=== PATIENT | female | born 1995 | race Hispanic/Latino ===

== ENCOUNTER 2021-10-21 05:13 | Emergency (ER) | payer OTHER, SELFPAY ==
[2021-10-21 05:15] VITALS: BP 128/70; PULSE 97; RESP 19; TEMP 36.2; O2SAT 98
--- NOTE | 2021-10-21 05:23 | DI.US.S_ITS ---
PROCEDURE: US OB <= 14 WEEKS FETUS INDICATIONS: PAIN OUTSIDE/PRIOR DATING DATA: Last menstrual period (LMP): 08/25/2021. LMP-based estimated date of delivery (DIANE): 08/12/2021. First dating scan (date and location): 10/21/2021 at . Estimated date of delivery (DIANE) from first dating scan: 06/11/2022. TECHNIQUE: Real-time scanning was performed of the fetus and maternal pelvic organs, with image documentation. Endovaginal scanning was also performed to better visualize the fetus and maternal ovaries. COMPARISON: None. FINDINGS: There is a single living IUP with the estimated gestational age 6 weeks 5 days. cardiac activity is present with heart rate 137 BPM. There is a normal appearing yolk sac. Maternal organs: Ovaries are grossly normal. Note is made of a corpus luteal cyst in the left ovary. IMPRESSION: 1. A single living intrauterine gestation with an estimated gestational age of 6 weeks 5 days corresponding to ultrasound DIANE 06/11/2022. Ultrasound dating concordant with clinical dating. 2. A corpus luteal cyst in left ovary. No significant discrepancy with the wood tank erector radiology preliminary report. We strive to produce accurate, complete, and clear reports of imaging services. To assist us in improving patient care, this report was composed using standard report templates and voice recognition software. Therefore, it may contain abnormal punctuation, insertions and/or omissions. Occasional wrong-word or sound-alike substitutions may occur. Though we review the report and make efforts to correct it, we do recommend that the report be read carefully in proper context to recognize any text inaccuracies. Dictated by: Shavonne Musa M.D. on 10/21/2021 at 8:51 Approved by: Shavonne Musa M.D. on 10/21/2021 at 8:54
--- NOTE | 2021-10-21 05:38 | ED_ITS ---
HPI - Female Genitourinary General Chief complaint: OB/Uterine Contractions Stated complaint: Transfered from [facility] Time Seen by Provider: 10/21/21 05:17 Source: patient Mode of arrival: Ambulatory History of Present Illness HPI Narrative: 26-year-old female nonsmoker otherwise healthy is a at 7 weeks and presents in transfer from outside facility for evaluation of possible ectopic . Patient states that she has had a relatively gradual worsening of abdominal discomfort for the past 2 days. She states it started with some pins and needles and tingling sensation in her mid back which initially seemed to get w orse with motion and improves with rest. Soon thereafter she developed episodic, colicky generalized abdominal pain and had some loose stools. She states that the pain significantly worsened with bowel movements. She denies any fever or chills, recent antibiotics, travel, bad food, or exposure to other persons with similar symptoms. She admits to dysuria and urgency and states this feels similar to prior UTIs. She has no vaginal bleeding, discharge or leakage of fluid. In the past 24 hours or so she has developed more significant pain in her right lower quadrant which seems to only be worse with palpation. She was seen and evaluated at outside facility and confirms urine and, beta quantitative hCG of over 67,000. Blood type is O-positive. She was sent here for further workup, most importantly for ultrasound to rule out the potential of ectopic as sending facility does not have access to ultrasound until day shift. Related Data Previous Rx's Medication Instructions Recorded cephalexin 500 mg capsule 500 mg PO BID #14 cap 10/21/21 Review of Systems Review of Systems Narrative: GENERAL: Denies chills, fatigue, malaise, fever, sweats. HEENT: Denies sinus pain, ear pain, sore throat, difficulty swallowing, dizziness. RESPIRATORY: Denies dyspnea, cough, wheezing, hemoptysis, sputum. CARDIOVASCULAR: Denies chest pain, palpitations, orthopnea, edema, GASTROINTESTINAL: See HPI : See HPI MUSCULOSKELETAL: denies weakness, joint pain, or bony pain SKIN: Denies rash, skin lesions, or other NEUROLOGIC: Denies weakness, headache, numbness, change in speech, confusion, seizures, incoordination. PSYCHIATRIC: No concerning psychosocial issues. 12 point review of systems is negative except for those stated above Patient History alcohol intake frequency: holidays/special occasions only Substance Use Type: does not use Exam Narrative Exam Narrative: GENERAL: [26] year old patient appears stated age. Well-developed patient, in mild distress. HEAD: Atraumatic. Normocephalic. EYES: Pupils equal round and reactive. Extraocular motions intact. No scleral icterus. No injection or drainage. ENT: Nose without bleeding, purulent drainage. Throat without erythema, tonsillar hypertrophy or exudate. Airway patent. NECK: Trachea midline. Non tender CARDIOVASCULAR: Regular rate and rhythm without murmurs, gallops, or rubs. RESPIRATORY: Clear to auscultation. Breath sounds equal bilaterally. No wheezes, rales, or rhonchi. GASTROINTESTINAL: Abdomen soft, generalized tenderness with increased bowel sounds throughout, most tender in the right lower quadrant, nondistended. EXTREMITIES: No edema or joint tenderness. BACK: Nontender without deformity or crepitance. No flank tenderness. NEURO: AOx3. SKIN: No rash or erythema of visible areas Initial Vital Signs Initial Vital Signs: Vital Signs Temperature 97.2 F L 10/21/21 05:15 Pulse Rate 97 H 10/21/21 05:15 Respiratory Rate 19 10/21/21 05:15 Blood Pressure 128/70 10/21/21 05:15 Pulse Oximetry 98 10/21/21 05:15 Course Orders Ordered: ED Orders 10/21/21 05:23 US OB <= 14 weeks fetus Stat 10/21/21 05:37 GI Panel (Film Array) Stat 10/21/21 06:40 Urine Culture Stat Urine Microscopic Stat Vital Signs Vital signs: Vital Signs - 8 hr 10/21/21 05:15 Temperature 97.2 F L Pulse Rate 97 H Respiratory Rate 19 Blood Pressure 128/70 Pulse Oximetry 98 MDM - Female Genitourinary Lab Data Labs: Lab Results 10/21/21 Range/Units 06:40 Urine RBC 0-1/hpf (0-5/HPF) Urine WBC None seen (0-5/HPF) Ur Squamous Epith Cells 1-5 /hpf (0-5/HPF) Urine Bacteria Many (>30) H (None) Ur Culture Indicated? Specimen cultured Urine Dip Bedside Urine Glucose Negative Bedside Urine Bilirubin - Negative Bedside Urine Ketone +/- 5 Urine Specific [place] 1.015 Bedside Urine Occult Blood ++ Bedside Urine pH 6.0 Bedside Urine Protein - Negative Bedside Urine Urobilinogen - Negative Bedside Urine Nitrite + Positive Bedside Urine Leukocytes - Negative Esterase Imaging Data US - OB: Radiologist's Impression: Live IUP with HR 137. No ectopic. MDM Narrative Medical decision making narrative: at 7 weeks presents with generalized abdominal cramping and discomfort with some low back pain. Multiple diagnoses considered including ectopic which is thought unlikely given ultrasound findings. She is unable to produce a stool sample here in our department in is low risk for an infectious diarrhea given lack of travel, antibiotics, bad food or exposure to other ill persons. She does have urinary frequency, urgency and dysuria and urine POC notes hematuria and nitrites. She has had urine infections in the past and states this feels similar. Given the risk of not treating UTI in we will start her on Keflex (rx to [facility] at her request) Patient given extensive return precautions and questions answered to her apparent satisfaction. Discharge Plan Departure Patient Disposition: Home Clinical Impression: Abdominal pain, UTI (urinary tract infection) Instructions: DI for Urinary Tract Infection (UTI) Activity Restrictions/Additional Instructions: *You have been diagnosed with [diarrhea and UTI. As we discussed your labs and ultrasound are otherwise very reassuring and there is no evidence of ectopic ] *What to do: *Please continue to take your regular medications as directed. [ x] New medication prescriptions sent to your pharmacy: [ [facility] in [place]] [ ] New medication written as a paper prescription [ ] No new medications given *Please follow up with your primary care provider in 2-3 days, call for an appointment. Let them know you were seen in the Emergency Department and that we ask that you be seen in follow up. We will electronically transmit a record of today's note if your PCP is in our system *If you do not have a primary care provider please contact the [facility] Resource line at [phone]. They will ask some questions about your medical history and help get you set up with a doctor in the community. *Return to Emergency Department if you should have any new, worsening or concerning symptoms, such as [fever greater than 101 F, shaking chills, worsening pain, persistent vomiting or other bothersome symptoms] Prescriptions: New cephalexin 500 mg capsule 500 mg PO BID Qty: 14 0RF
[2021-10-21 06:49] LABS: Bacteria Urine Many (>30); RBC Urine 0-1/HPF (0-5/HPF); Squamous Epithelial Cell Urine 1-5 /HPF (0-5/HPF); WBC Urine None Seen (0-5/HPF)
[2021-10-21 06:50] LABS: Culture Indicated Urine Specimen Cultured
== END 2021-10-21 07:09 | disposition home or self-care (01) ==
PROVIDERS: Emergency Provider Emergency Medicine
DX: O23.41 Unspecified infection of urinary tract in pregnancy, first trimester (principal); O26.891 Other specified pregnancy related conditions, first trimester; R10.84 Generalized abdominal pain; Z3A.01 Less than 8 weeks gestation of pregnancy
CPT/HCPCS: 76801; 76817; 81003; 81015; 87077; 87086; 87186; 99281; 99283

== ENCOUNTER → 2021-11-23 16:47 | Outpatient (CLI) | payer OTHER, SELFPAY ==
[2021-11-23 21:12] LABS: Urine N gonorrhoeae NOT DETECTED
[2021-11-23 21:37] LABS: Urine Chlamydia NOT DETECTED
== END ==
PROVIDERS: Visit Provider Specialist
DX: Z34.81 Encounter for supervision of other normal pregnancy, first trimester (principal); Z3A.11 11 weeks gestation of pregnancy
CPT/HCPCS: 87491; 87591

== ENCOUNTER → 2021-11-23 17:04 | Outpatient (CLI) | payer OTHER, SELFPAY ==
[2021-11-23 18:05] LABS: Add Manual Diff / Slide Review NO; Basophils Absolute Auto 0 /uL (0-100); Basophils Percent Auto 0.4 % (0-2); Eosinophils Absolute Auto 600 /uL (0-450); Eosinophils Percent Auto 5.9 % (2-4); Hematocrit 37.3 % (36-46); Hemoglobin 12.9 g/dL (12.0-16.0); Lymphocytes Absolute Auto 1900 /uL (1100-4500); Lymphocytes Percent Auto 18.9 % (25-40); Mean Corpuscular HGB Conc 34.6 % (30-36); Mean Corpuscular Hemoglobin 28.5 PG (26-34); Mean Corpuscular Volume 82.5 fL (80-100); Monocytes Absolute Auto 400 /uL (0-900); Neutrophils Absolute Auto 7000 /uL (1500-7000); Neutrophils Percent Auto 70.8 % (50-75); Platelet Count 228 X10^3/uL (150-400); Red Blood Cell Count 4.52 X10^6/uL (4.0-5.2); White Blood Cell Count 9.8 X10^3/uL (4.5-11.0)
[2021-11-24 07:39] LABS: Varicella IgG Antibody 264 index (Immune >165)
[2021-11-24 08:24] LABS: RPR Screen Non Reactive (Non Reactive)
[2021-11-24 16:18] LABS: Hepatitis B Surface Antigen NEGATIVE s/c (NEGATIVE); Rubella Antibody IgG 3.4 IU/mL (>15)
[2021-11-24 16:38] LABS: HIV 1 & 2 Ab/Ag 4th Gen Combo NEGATIVE (NEGATIVE); Hep C Virus Ab w/Reflex Quant NEGATIVE s/c (NEGATIVE)
== END ==
PROVIDERS: Referring Provider Specialist; Visit Provider Specialist
DX: Z34.81 Encounter for supervision of other normal pregnancy, first trimester (principal); Z3A.11 11 weeks gestation of pregnancy
CPT/HCPCS: 36415; 80055; 86787; 86803; 86850; 86900; 86901; 87389; 87491; 87591

== ENCOUNTER → 2021-12-21 19:08 | Outpatient (ROUT) | payer OTHER, SELFPAY ==
[2021-12-21 19:38] LABS: Appearance Urine UA CLEAR; Bilirubin Urine UA NEGATIVE (NEGATIVE); Color Urine UA YELLOW; Glucose Urine UA NEGATIVE (Negative); Ketones Urine UA NEGATIVE (NEGATIVE); Leukocyte Esterase Urine UA TRACE (NEGATIVE); Nitrite Urine UA POSITIVE (Negative); Occult Blood Urine UA 2+ (Negative); Protein Urine UA NEGATIVE (Negative); Urobilinogen Urine UA 0.2 E.U./dL (0.2)
[2021-12-21 19:42] LABS: pH Urine UA 5.5 (4.5-8.0)
[2021-12-21 19:47] LABS: Bacteria Urine None Seen; Culture Indicated Urine Cult Not Indicated; RBC Urine 5-10/HPF (0-5/HPF); WBC Urine 1-5/HPF (0-5/HPF)
== END ==
PROVIDERS: Specialist; Visit Provider Obstetrics & Gynecology
DX: Z34.81 Encounter for supervision of other normal pregnancy, first trimester (principal)
CPT/HCPCS: 81003; 81015; 87077; 87086; 87147

== ENCOUNTER → 2022-01-18 14:40 | Outpatient (CLI) | payer OTHER, SELFPAY ==
[2022-01-18 15:09] LABS: Alanine Aminotransferase 12 IU/L (<35); Albumin 3.9 g/dL (3.5-5.0); Albumin Globulin Ratio 1.3 (1.0-2.8); Alkaline Phosphatase 56 U/L (38-126); Aspartate Aminotransferase 17 IU/L (14-36); BUN Creatinine Ratio 17.3 (6-22); Bilirubin Total 0.1 mg/dL (0.2-1.3); Blood Urea Nitrogen 9 mg/dL (7-17); Calcium 9.1 mg/dL (8.4-10.2); Carbon Dioxide 24 mmol/L (22-32); Chloride 104 mmol/L (98-107); Estimated Glomerular Filt Rate > 60 mL/min (>60); Glucose 92 mg/dL (70-100); HEMOLYSIS < 15 (0-50); Potassium 3.8 mmol/L (3.4-5.1); Sodium 136 mmol/L (137-145); Total Protein 6.9 g/dL (6.3-8.2)
[2022-01-20 20:28] LABS: AFP, Serum 33.2 ng/mL (.); Estriol, Free 2.02 ng/mL (.); Inhibin A, MoM 0.59 (.); Maternal Ethnicity Other (.); Maternal Weight 217 lbs (.); Number of Fetuses No (.); OSBR Risk 1 IN 10000 (.); Results Report (.); Test Results *Screen Negative* (.); hCG, MoM 0.55 (.); hCG, Serum 11381 mIU/mL (.)
== END ==
PROVIDERS: Referring Provider Obstetrics & Gynecology; Visit Provider Obstetrics & Gynecology
DX: Z34.82 Encounter for supervision of other normal pregnancy, second trimester (principal); R10.11 Right upper quadrant pain; Z3A.19 19 weeks gestation of pregnancy
CPT/HCPCS: 36415; 80053; 82105; 82677; 84702; 86336

== ENCOUNTER → 2022-01-25 13:57 | Outpatient (CLI) | payer OTHER, SELFPAY ==
--- NOTE | 2022-01-25 13:58 | DI.US.S_ITS ---
PROCEDURE: US OB >= 14 WEEKS FETUS INDICATIONS: 20 wk anatomy OUTSIDE/PRIOR DATING DATA: Last menstrual period (LMP): 08/25/2021. LMP-based estimated date of delivery (DIANE): 06/11/2022. First dating scan (date and location): 10/21/2021 at . Estimated date of delivery (DIANE) from first dating scan: 06/11/2022. TECHNIQUE: Real-time scanning was performed of the fetus, with image documentation and biometric measurements. Endovaginal scanning: Not performed. COMPARISON: [facility], OB <= 14 WEEKS FETUS, 11/23/2021, 16:54. [facility], OB <= 14 WEEKS FETUS, 10/21/2021, 6:08. FINDINGS: General: A single living intrauterine gestation is present. Presentation: Breech. Placenta: Placental position is posterior right , without previa. Amniotic fluid index: 11 cm, normal range is 5-24 cm. Single deepest vertical pocket is 3.9 cm. heart rate: 143 beats per minute. Maternal cervical canal: 5.4 cm long. Normal lower limit is 2.5 cm. biometrics: Biparietal diameter: 21 weeks 1 day Head circumference: 21 weeks 0 day Abdominal circumference: 21 weeks 1 day Femur length: 21 weeks 0 day Clinically estimated gestational age: 20 weeks 3 days Composite gestational age from present scan: 21 weeks 1 day Estimated weight and percentile: 397 g; 80%. Anatomic survey: Neuro: Ventricles are non-dilated at less than 10 mm. Cisterna magna is normal at 3-11 mm. Cerebellum is normal in size and morphology. Nuchal skin fold: Normal at less than 6 mm between 14-21 weeks gestational age. Face: Nose and lips, facial profile are normal. Spine: Lumbar spine and sacrum not well seen due to position. Heart: 4-chambered heart is present, with normal ventricular outflow tracts. Diaphragm: Diaphragm is intact. Stomach: Left-sided stomach is present. Kidneys: No hydronephrosis. Normal is less than 5 mm in 2nd trimester, less than 7 mm in 3rd trimester. Cord: 3-vessel cord has orthotopic insertion. Bladder: Normal in size. Extremities: All 4 extremities identified. feet not well seen. IMPRESSION: 1. A single living intrauterine gestation with appropriate interval growth. 2. weight at 80% focus station age. 3. spine and feet not well seen. Otherwise normal anatomic survey. We strive to produce accurate, complete, and clear reports of imaging services. To assist us in improving patient care, this report was composed using standard report templates and voice recognition software. Therefore, it may contain abnormal punctuation, insertions and/or omissions. Occasional wrong-word or sound-alike substitutions may occur. Though we review the report and make efforts to correct it, we do recommend that the report be read carefully in proper context to recognize any text inaccuracies. Dictated by: Shavonne Musa M.D. on 01/25/2022 at 17:51 Approved by: Shavonne Musa M.D. on 01/25/2022 at 18:00
== END ==
PROVIDERS: PCP Obstetrics & Gynecology; Referring Provider Obstetrics & Gynecology; Visit Provider Obstetrics & Gynecology
DX: Z34.82 Encounter for supervision of other normal pregnancy, second trimester (principal); Z3A.21 21 weeks gestation of pregnancy
CPT/HCPCS: 76811

== ENCOUNTER 2022-02-13 09:35 | Observation (INO) | payer OTHER, SELFPAY ==
[2022-02-13 10:13] LABS: Appearance Urine UA CLEAR; Bilirubin Urine UA NEGATIVE (NEGATIVE); Color Urine UA YELLOW; Glucose Urine UA NEGATIVE (Negative); Ketones Urine UA NEGATIVE (NEGATIVE); Leukocyte Esterase Urine UA 3+ (NEGATIVE); Nitrite Urine UA NEGATIVE (Negative); Occult Blood Urine UA 2+ (Negative); Protein Urine UA NEGATIVE (Negative); Urobilinogen Urine UA 0.2 E.U./dL (0.2)
[2022-02-13 10:23] LABS: RBC Urine 1-5/HPF (0-5/HPF); WBC Urine 5-10/HPF (0-5/HPF); pH Urine UA 6.5 (4.5-8.0)
[2022-02-13 10:24] LABS: Bacteria Urine Few (2-10); Culture Indicated Urine Specimen Cultured; Squamous Epithelial Cell Urine 0-1 /HPF (0-5/HPF)
--- NOTE | 2022-02-13 12:30 | P.TNLD_ITS ---
Visit Information Visit Information Date of evaluation: 02/13/22 Primary OB Provider: Yisel Michelle Reason for Evaluation: Yes other Comments/Additional reasons for admission: cramping in , urinary frequency, vaginal itching 26-year-old presents due to intermittent lower abdominal cramping and urinary frequency. She also had some discomfort in her lower abdomen, suprapubically with voiding which has now resolved. Urinary symptoms feel similar to when she was in the ED at 7 weeks and diagnosed with the UTI. Also notes lower abdominal discomfort with standing, feels better supporting her abdomen, and some back discomfort with sitting only, both sound musculoskeletal by description. Reports intermittent vaginal itching when she sees at discharge. Reports increased white discharge. Denies leakage of fluid to me, but on presentation reported to RN what sounded like possible leakage of fluid. No vaginal bleeding. Feeling movement. [facility] Medical History (Updated 11/17/21 @ 14:11 by Ramandeep Reid RN) delivery delivered Family History (Updated 11/17/21 @ 14:11 by Ramandeep Reid RN) Family/Other Diabetes mellitus Social History marital status: number of children: 2 household members: spouse and children lives independently: Yes housing: house pets and animals: Yes (1 dog) education level: high school occupational status: unemployed current occupational exposures/hazards: No special danyelle needs: No travel history: over 6 months ago seatbelt use: always water heater temp set < 120 deg: Yes working smoke detector in home: Yes fire extinguisher in home: Yes carbon monox detector in home: Yes firearms in home: Yes firearms unloaded and locked: Yes do you feel safe at home: Yes Smoking Status: Never smoker second hand exposure: No (not regularly (brother smokes, doesn't live with pt)) alcohol intake: former substance use type: does not use during the past year weight has: other (Fluctuates) well-balanced diet: daily or most days daily servings fruits/ve-4 caffeine: Yes (Aware of 200mg limit) Type(s) of exercise: walking Objective Labs Labs: Laboratory Results - last 24 hr 02/13/22 09:50 Urine Color Yellow Urine Appearance Clear Urine pH 6.5 Ur Specific [place] 1.010 Urine Protein Negative Urine Glucose (UA) Negative Urine Ketones Negative Urine Occult Blood 2+ H Urine Nitrate Negative Urine Bilirubin Negative Urine Urobilinogen 0.2 Ur Leukocyte Esterase 3+ H Urine RBC 1-5/hpf Urine WBC 5-10/hpf H Ur Squamous Epith Cells 0-1 /hpf Urine Bacteria Few (2-10) H Ur Culture Indicated? Specimen cultured Evaluation Evaluation Variability: Average (6-10) monitor accelerations: Present Monitor Decelerations: Absent Status: Category l Cervical dilation (cm): 0 Cervical effacement (%): 0 Comments: Normal EFM baseline, no decelerations. Small accelerations consistent with gestational age. [place]: No contractions Abdominal exam: no tenderness Back: No CVA tenderness bilaterally. Area discomfort is very low, medial and inferior to sacroiliac joints Speculum exam: Increased yellow green discharge. Sample for wet prep: Viewed under microscope by me, shows hyphae. No Trichomonas, rare clue cell. 3+ WBC, occasional sperm seen. Urinalysis: 3+ leukocyte, 2+ blood. On micro 5-10 wbc, few bacteria Diagnosis, Plan/Disposition Plan/Disposition Plan: 1.Yeast vaginitis: Vaginal clotrimazole send. Discussed if ends up being too expensive by prescription, then by an [id number] 3 or 7 day antifungal vaginal cream. 2. Will treat presumptively for UTI pending the culture since symptoms feel similar to past UTI and seeing some bacteria on the urine dip. Rx Cefpoxidime 100 BID x7d UCx sent 3. Musculoskeletal discomfort. Discussed to consider an abdominal binder to help with the lower abdominal discomfort with standing. OB Disposition: home
== END 2022-02-13 12:18 | disposition home or self-care (01) ==
PROVIDERS: Admitting Provider Obstetrics & Gynecology; PCP Obstetrics & Gynecology; Referring Provider Obstetrics & Gynecology; Visit Provider Obstetrics & Gynecology
DX: O23.592 Infection of other part of genital tract in pregnancy, second trimester (principal); B96.89 Other specified bacterial agents as the cause of diseases classified elsewhere; O26.892 Other specified pregnancy related conditions, second trimester; R10.30 Lower abdominal pain, unspecified; Z3A.23 23 weeks gestation of pregnancy
CPT/HCPCS: 59025; 59050; 81001; 84112; 87077; 87086; 87147; G0378; G0379

== ENCOUNTER → 2022-03-10 15:41 | Outpatient (CLI) | payer OTHER, SELFPAY ==
[2022-03-10 18:13] LABS: Hematocrit 32.7 % (36-46); Hemoglobin 11.1 g/dL (12.0-16.0)
[2022-03-10 18:22] LABS: GTT (PREG) 1 Hour PP 50gm Dose 213 mg/dL (76-139)
== END ==
PROVIDERS: PCP Obstetrics & Gynecology; Referring Provider Obstetrics & Gynecology; Visit Provider Obstetrics & Gynecology
DX: Z34.82 Encounter for supervision of other normal pregnancy, second trimester (principal); Z3A.26 26 weeks gestation of pregnancy
CPT/HCPCS: 36415; 82950; 85014; 85018

== ENCOUNTER → 2022-03-28 09:38 | Outpatient (CLI) | payer OTHER, SELFPAY ==
--- NOTE | 2022-03-28 09:39 | DI.US.S_ITS ---
PROCEDURE: US OB FOLLOW UP INDICATIONS: Complete anatomy survey, retry visualization spine/ft OUTSIDE/PRIOR DATING DATA: Last menstrual period (LMP): 08/25/2021 LMP-based estimated date of delivery (DIANE): 06/01/2022 First dating scan (date and location): 10/21/2021 Estimated date of delivery (DIANE) from first dating scan: 06/11/2022 The calculations are made using the ultrasound DIANE of 06/11/2022 TECHNIQUE: Real-time scanning was performed of the fetus, with image documentation and biometric measurements. Endovaginal scanning: Not performed COMPARISON: [facility], , OB >= 14 WEEKS FETUS, 01/25/2022, 14:38. FINDINGS: General: A single living intrauterine gestation is present. Presentation: Breech Placenta: Placental position is posterior, without previa. Amniotic fluid index: 16.8 cm, normal range is 5-24 cm. Single deepest vertical pocket is 5.1 cm. heart rate: 149 beats per minute. Maternal cervical canal: 4.7 cm long. Normal lower limit is 2.5 cm. biometrics: Biparietal diameter: 7.9 cm, 31 weeks 6 days Head circumference: 28.6 cm, 31 weeks 3 days Abdominal circumference: 26.4 cm, 30 weeks 4 days Femur length: 5.5 cm, 29 weeks 0 days Clinically estimated gestational age: 29 weeks 2 days Composite gestational age from present scan: 30 weeks 5 days Estimated weight and percentile: 1537 g, 72nd percentile Other: feet and spine are visualized and are within normal limits. IMPRESSION: 1. Single live intrauterine with appropriate growth. 2. spine and feet are visualized and are within normal limits. We strive to produce accurate, complete, and clear reports of imaging services. To assist us in improving patient care, this report was composed using standard report templates and voice recognition software. Therefore, it may contain abnormal punctuation, insertions and/or omissions. Occasional wrong-word or sound-alike substitutions may occur. Though we review the report and make efforts to correct it, we do recommend that the report be read carefully in proper context to recognize any text inaccuracies. Dictated by: Sudhir Sims M.D. on 03/28/2022 at 16:25 Approved by: Sudhir Sims M.D. on 03/28/2022 at 16:28
== END ==
PROVIDERS: Referring Provider Obstetrics & Gynecology; Visit Provider Obstetrics & Gynecology
DX: Z36.2 Encounter for other antenatal screening follow-up (principal); Z3A.30 30 weeks gestation of pregnancy
CPT/HCPCS: 76816

== ENCOUNTER → 2022-03-29 09:39 | Outpatient (CLI) | payer OTHER, SELFPAY ==
--- NOTE | 2022-03-29 17:05 | DIAB.GDA ---
Initial Gestational Diabetes Assessment Name: Marbella Thompson Date: 03/29/22 Time: [id number] Dx: [facility] Gestational Diabetes & Abnormal glucose complicating Provider: Viviana DIANE: 06/11/22 Weeks: 29 [place] presents for initial visit. Endorses GDM dx at the end of her last in 2019. No GDM with 2018 , however both children born >9#. +FH of DM with paternal grandmother and aunt. States she will be repeating the glucola screen since it was 213 mg/dL after drinking soda prior. States she has a very busy schedule currently with packing for her move in June. will be stationed in [place]. Reports difficulty with with both daughters. Reports pain. Would like to try again with this baby (she is having a son). Mother plans to come help her and support plan. Has not utilized a inside sales consultant. Endorses a variable schedule. Not sleeping well and not eating at regular times. Sometimes will go >4 hours without eating and then eat larger portions per report. Receives WIC. Has questions regarding food safety in . Diet Recall: Breakfast: eggs, glass, veggies, coffee with sweet creamer ; only coffee and creamer ; fruit x 1.5c with coffee Lunch: nothing or sandwich with ww bread with 1/2-1c chips Dinner: 3c soup with meat and potatoes and veg ; 1-1.5c potatoes with green beans and steak snack: Cookie 18g CHO Beverages: water x 128oz+, soda 12oz, OJ somtimes 8oz for breakfast Anthropometrics: Ht: 5'5 Wt: 241# today at OB Prepregnancy wt: 202# Physical Activity: No program. Mostly ADLs with packing and house chores Self-Monitoring Blood Glucose: Recent ran out of lancets. Plans to call pharmacy. Checking FBG and some 1 or 2 hour pc readings. Currently checking 1-3x per day due to skipped meals. States she will be more likely to check BG if at 1hour pc. States 2 hour she will forget. All FBG and postprandial readings in goal with one elevated FBG after <8 hour fasting. Diabetes Medications: None Pertinent Labs: screen 1 hr: 213 mg/dL Nutrition Rx: Carbohydrates: Daily: 180-195g Meal: 45-60g lunch and dinner; 30g breakfast Snack: 15-30g Nutrition Diagnosis: Nutrition and food related knowledge deficit r/t no previous MNT for hyperglycemia aeb pt report Excessive CHO intake r/t beverage choices aeb diet recall Self monitoring deficit r/t skipped meals, forgetting, and running out of lancets aeb pt SMBG report Intervention: This participant was very receptive. Provided appropriate educational handouts. Discussed the following topics: GDM pathophysiology and impact of hyperglycemia on mom and baby Risk for T2DM for mom and baby in the future Ways to reduce risk T2DM Plate Method, meal timing, carb counting, pairing macronutrients and spreading out CHO for better BG management Blood glucose goals (FBG: <95 and 1 hour <140 mg/dL or 2 hour <120 mg/dL); importance of checking 4x per day (FBG and pc) Impact of macronutrients on blood glucose Recommended servings for carbohydrates at meals and snacks Brainstormed appropriate meal plan based on her food preferences Food safety: heat up lunch meat, read food labels for cheese that is pasteurized. Role of physical activity and following provider guidelines for safety Goals: Check for pasteurized cheese warm turkey until steaming Eat prot with carbs for meals/snacks Try to eat q 3-4 hours Avoid sugary beverages Follow-up: ROSITA MOORE follow-up in two weeks via phone and three weeks in person Diane Sullivan RDN, OSCAR Certified Diabetes Care and Laboratory Appar[employer] T: [phone] F: [phone] [email or web address] Thank you for this referral
== END ==
PROVIDERS: PCP Obstetrics & Gynecology; Referring Provider Obstetrics & Gynecology; Visit Provider Obstetrics & Gynecology
DX: O24.419 Gestational diabetes mellitus in pregnancy, unspecified control (principal); Z3A.29 29 weeks gestation of pregnancy; Z71.3 Dietary counseling and surveillance
CPT/HCPCS: 36415; 82950; 97802

== ENCOUNTER → 2022-03-29 11:20 | Outpatient (CLI) | payer OTHER, SELFPAY ==
[2022-03-29 13:54] LABS: GTT (PREG) 1 Hour PP 50gm Dose 139 mg/dL (76-139)
== END ==
PROVIDERS: PCP Obstetrics & Gynecology; Referring Provider Obstetrics & Gynecology; Visit Provider Obstetrics & Gynecology
DX: Z34.82 Encounter for supervision of other normal pregnancy, second trimester (principal); Z3A.29 29 weeks gestation of pregnancy
CPT/HCPCS: 36415; 82950

== ENCOUNTER → 2022-04-25 16:55 | Outpatient (CLI) | payer OTHER, SELFPAY ==
--- NOTE | 2022-04-25 17:01 | DI.US.S_ITS ---
PROCEDURE: US OB LIMITED INDICATIONS: Growth US OUTSIDE/PRIOR DATING DATA: Last menstrual period (LMP): 08/25/2021. LMP-based estimated date of delivery (DIANE): 06/01/2022. First dating scan (date and location): 10/21/2021. Estimated date of delivery (DIANE) from first dating scan: 06/11/2022. TECHNIQUE: Real-time scanning was performed of the fetus, with image documentation and biometric measurements. Endovaginal scanning: Not performed COMPARISON: [facility], , OB FOLLOW UP, 03/28/2022, 9:50. FINDINGS: General: A single living intrauterine gestation is present. Presentation: Transverse. Placenta: Placental position is fundal/posterior , without previa. Amniotic fluid index: 20.0 cm, normal range is 5-24 cm. Single deepest vertical pocket is 7.0 cm. heart rate: 131 beats per minute. Maternal cervical canal: 6.0 cm long. Normal lower limit is 2.5 cm. biometrics: Biparietal diameter: 9.0 cm, 36 weeks 4 days Head circumference: 32.8 cm, 37 weeks 2 days Abdominal circumference: 33.4 cm, 37 weeks 2 days Femur length: 6.6 cm, 33 weeks 6 days estimated gestational age: 33 weeks 2 days Composite gestational age from present scan: 36 weeks 2 days Estimated weight and percentile: 2916 g, 99th percentile Other: Not applicable. IMPRESSION: 1. Single living intrauterine . 2. size is greater than expected for gestational age. The fetus is at risk for macrosomia. We strive to produce accurate, complete, and clear reports of imaging services. To assist us in improving patient care, this report was composed using standard report templates and voice recognition software. Therefore, it may contain abnormal punctuation, insertions and/or omissions. Occasional wrong-word or sound-alike substitutions may occur. Though we review the report and make efforts to correct it, we do recommend that the report be read carefully in proper context to recognize any text inaccuracies. Dictated by: Sudhir Cheng M.D. on 04/26/2022 at 8:45 Approved by: Sudhir Cheng M.D. on 04/26/2022 at 8:59
== END ==
PROVIDERS: PCP Obstetrics & Gynecology; Referring Provider Obstetrics & Gynecology; Visit Provider Obstetrics & Gynecology
DX: O24.419 Gestational diabetes mellitus in pregnancy, unspecified control (principal); Z3A.36 36 weeks gestation of pregnancy
CPT/HCPCS: 76815

== ENCOUNTER 2022-05-06 23:11 | Observation (INO) | payer OTHER, SELFPAY ==
[2022-05-07] MEDS: NIFEdipine 10 MG CAPSULE PO ×3 (01:18→02:03)
[2022-05-07] MEDS: LACTATED RINGERS 1,000 ML 1000 ML IV (01:24)
[2022-05-07 01:25] LABS: Strep Grp B PCR POS for Grp B Strep
== END 2022-05-07 02:16 | disposition home or self-care (01) ==
LOC: LABOR 23:15
PROVIDERS: Admitting Provider Obstetrics & Gynecology; Referring Provider Obstetrics & Gynecology; Visit Provider Obstetrics & Gynecology
DX: O60.03 Preterm labor without delivery, third trimester (principal); Z3A.34 34 weeks gestation of pregnancy
CPT/HCPCS: 59050; 87653; 96360; G0378; G0379

== ENCOUNTER 2022-05-24 11:22 | Outpatient (CLI) | payer OTHER, SELFPAY | END 2022-05-24 13:30 | disposition home or self-care (01) | LOC: LABOR 12:08 → OB 05-29 08:45 | PROVIDERS: Referring Provider Obstetrics & Gynecology; Visit Provider Obstetrics & Gynecology | DX: O47.1 False labor at or after 37 completed weeks of gestation (principal); Z3A.37 37 weeks gestation of pregnancy | CPT/HCPCS: 59025; 59050; G0378; G0379 ==

== ENCOUNTER 2022-06-05 05:40 | Inpatient (IN) | payer OTHER, SELFPAY ==
[2022-06-05] VITALS (7 sets, daily range): BP systolic 94–139; BP diastolic 56–79; PULSE 67–88; RESP 14–20; TEMP 36–36.7; O2SAT 100
--- NOTE | 2022-06-05 | PATH_ITS ---
[facility] Accession Number: [id number] . 01 Material submitted: . fallopian tube - RIGHT AND LEFT FALLOPIAN TUBES . 01 Diagnosis: Right and Left Fallopian Tubes, Bilateral Salpingectomy: Two fimbriated fallopian tubes with benign paratubal cyst. MRV 06/07/2022 1728 Local . 01 Electronically signed: . Jeni Shaw MD, Pathologist NPI- [id number] . 01 Gross description: . The specimen is received in formalin labeled with the patient's name, , and right and left fallopian tubes, and consists of two unoriented fimbriated fallopian tubes measuring 8.6 x 0.9 cm and 5.7 x 1.2 cm, respectively. The longer fallopian tube has congested smooth serosa with a cystic structure measuring 0.7 cm in greatest dimension filled with clear serous fluid. Sectioning reveals a congested stellate lumen. The shorter fallopian tube has congested smooth serosa with no cystic structures identified, and sectioning reveals a congested stellate lumen. Sections to include a authorization representative longitudinal section of fimbriae and authorization representative cross-sections are submitted as follows: . A1: Longer fallopian tube. A2: [place] fallopian tube. ([id number]) /MRV 06/07/2022 0246 Local . 01 Pathologist provided ICD-10: Z98.891, Z3A.39 . 01 CPT . 687172 Specimen Comment: A courtesy copy of this report has been sent to [facility] Performed at: 01 [facility] [address] [place] [address] [address], [place], [place] [id number] MD Harley Barahona MD Phone: [phone]
[2022-06-05] MEDS: LACTATED RINGERS 1,000 ML 100 ML IV (06:00)
[2022-06-05 06:53] LABS: Add Manual Diff / Slide Review NO; Basophils Absolute Auto 0 /uL (0-100); Basophils Percent Auto 0.3 % (0-2); Eosinophils Absolute Auto 300 /uL (0-450); Eosinophils Percent Auto 3.4 % (2-4); Hematocrit 34.1 % (36-46); Hemoglobin 11.1 g/dL (12.0-16.0); Lymphocytes Absolute Auto 1800 /uL (1100-4500); Lymphocytes Percent Auto 19.7 % (25-40); Mean Corpuscular HGB Conc 32.5 % (30-36); Mean Corpuscular Hemoglobin 24.8 PG (26-34); Mean Corpuscular Volume 76.3 fL (80-100); Monocytes Absolute Auto 400 /uL (0-900); Monocytes Percent Auto 4.8 % (3-14); Neutrophils Absolute Auto 6700 /uL (1500-7000); Neutrophils Percent Auto 71.8 % (50-75); Platelet Count 208 X10^3/uL (150-400); Red Blood Cell Count 4.47 X10^6/uL (4.0-5.2); Red Cell Distribution Width 16.6 % (11.6-14.8); White Blood Cell Count 9.3 X10^3/uL (4.5-11.0)
--- NOTE | 2022-06-05 07:28 | P.HPOB_ITS ---
OB HPI Date/Time Date of admission: 06/05/22 Date Patient Seen: 06/05/22 Time Patient Seen: 07:25 History of Present Condition Chief complaint: C SECTION DIANE Calculator Estimated Delivery Date Method Current WG Current Estimate 06/11/22 Ultrasound #1 39w 1d Other Estimates 06/01/22 LMP (Certain) 40w 4d Estimated Gestational Age (weeks): 39 : 3 Para: 2 Narrative: here for scheduled repeat section and bilateral salpingectomy for sterilization. She has a history of section x2 with 9-10 lb babies. She also desired sterilization with the procedure and I review of options of tubal ligation versus bilateral salpingectomy, she desired salpingectomy. She understands permanence of the procedure. She had a false initial 1 hour Glucola, drank a soda just prior to the test and value was elevated enough that we went straight to locking blood sugars.. She did a glucose log for over 1 week with all normal values. Repeat 1 hour Glucola was normal. care: good care Dating criteria OB: based on 1st trimester US only Obstetrical complications: none Medical complications OB: none Preadmission Labs Last OB Lab Results: Blood Type O Positive 11/23/21 17:30 Antibody Screen Negative 11/23/21 17:30 Hematocrit 34.1 % (36-46) L 06/05/22 06:00 Hemoglobin 11.1 g/dL (12.0-16.0) L 06/05/22 06:00 Hepatitis B Surface Antigen Negative s/c (NEGATIVE) 11/23/21 17 :30 Hepatitis C Antibody Negative s/c (NEGATIVE) 11/23/21 17:30 Rubella Antibody 3.4 IU/mL (>15) L 11/23/21 17:30 Varicella-Zoster IgG Antibody 264 index (Immune >165) 11/23/21 17:30 Glucose 1 Hour 139 mg/dL (76-139) 03/29/22 13:06 Group B Streptococcus (PCR) Pos for grp b strep H 05/07/22 00:2 6 -: Chlamydia screen: negative and Gonorrhea screen: negative Genetic Screens: Quad screen: Normal and Cell-free DNA: Normal Prior (ies) Past Pregnancies Del. Date GA/Weeks Labor Lgth Wt Sex Route Outcome Anesthesia Place Delv Breastfeed Preg Comp Name 07/07/17 39 10 lb 15 oz Female live - full term [place], [place] 1 week none Dana Berumen 12/15/19 39 9 lb 5 oz Female [facility] n/a no henrietta Renetta Delivery Date: 07/07/17 Last Updated by: Ramandeep Reid R.N. breech, born w/ cardiac murmur that resolved spontaneously Evaluation Evaluation Baseline heart rate: 135 Variability: Average (6-10) monitor accelerations: Present Monitor Decelerations: Absent Category of Tracing: Reactive Status: Category l Comments: has some irregular, infrequent contractions [facility] Medical History (Updated 05/20/22 @ 12:24 by Yisel Michelle MD) delivery delivered macrosomia Family History (Updated 11/17/21 @ 14:11 by Ramandeep Reid RN) Family/Other Diabetes mellitus Social History marital status: number of children: 2 household members: spouse and children lives independently: Yes housing: house pets and animals: Yes (1 dog) education level: high school occupational status: unemployed current occupational exposures/hazards: No special danyelle needs: No travel history: over 6 months ago seatbelt use: always water heater temp set < 120 deg: Yes working smoke detector in home: Yes fire extinguisher in home: Yes carbon monox detector in home: Yes firearms in home: Yes firearms unloaded and locked: Yes do you feel safe at home: Yes Smoking Status: Never smoker second hand exposure: No (not regularly (brother smokes, doesn't live with pt)) alcohol intake: former substance use type: does not use during the past year weight has: other (Fluctuates) well-balanced diet: daily or most days daily servings fruits/ve-4 caffeine: Yes (Aware of 200mg limit) Type(s) of exercise: walking Meds Home Medications and Allergies Home Medications Medication Instructions Recorded Confirmed Type calcium carbonate 200 mg calcium 200 mg PO BID PRN Acid Reflux 11/17/21 06/05/22 History (500 mg) chewable tablet (Tums) prenat.vits,brenda,brf-diux-pfxry 1 tab PO DAILY 11/17/21 06/05/22 History betamethasone dipropionate 0.05 % 1 applic topical DAILY PRN rash 12/21/21 06/05/22 Rx topical ointment #45 grams ondansetron HCl 4 mg tablet 4 mg PO Q8H PRN nausea and 12/21/21 06/05/22 Rx vomiting #20 tabs cefpodoxime 100 mg tablet 100 mg PO Q12H #14 tabs 02/13/22 06/05/22 Rx clotrimazole 1 % vaginal cream 1 appful vaginal BEDTIME #45 grams 02/13/22 06/05/22 Rx (Clotrimazole-7) ferrous sulfate 325 mg (65 mg 325 mg PO DAILY #30 tabs 03/10/22 06/05/22 Rx iron) tablet lancets #120 ea 03/14/22 06/05/22 Rx blood sugar diagnostic (Blood #120 ea 03/16/22 06/05/22 Rx Glucose Test strips) blood-glucose meter (Blood Glucose #1 ea 03/16/22 06/05/22 Rx Monitoring kit) Allergies Allergy/AdvReac Type Severity Reaction Status Date / Time No Known Allergies Allergy Verified 06/01/22 11:43 OB Exam Narrative Exam Narrative: Vital signs temperature 97.6? F, BP 119/76, pulse 86, pulse ox 98 % HENMT Head: normal to inspection and normocephalic Resp Effort & Inspection: normal respiratory effort Cardio Rate: regular rate Objective Labs Result Diagrams: 06/05/22 06:00 Labs: Laboratory Results - last 24 hr 06/05/22 06:00 WBC 9.3 RBC 4.47 Hgb 11.1 L Hct 34.1 L MCV 76.3 L MCH 24.8 L MCHC 32.5 RDW 16.6 H Plt Count 208 Neut % (Auto) 71.8 Lymph % (Auto) 19.7 L [place] % (Auto) 4.8 Eos % (Auto) 3.4 Baso % (Auto) 0.3 Neut # (Auto) 6700 Lymph # (Auto) 1800 [place] # (Auto) 400 Eos # (Auto) 300 Baso # (Auto) 0 Assessment and Plan Assessment and Plan Assessment and Plan narrative: 27 yo @ 39 weeks EGA With history of prior section. Desires s terilization with a procedure by way of salpingectomy. Macrosomia. being admitted for repeat section and bilateral salpingectomy for sterilization. She -Admit - routine CBC, type and screen - for repeat section and bilateral salpingectomy -Cefazolin for preoperative antibiotics Time Spent with Patient Total time spent with greater than 50% in coordination of care (as documented) at patient's floor/unit and/or counseling patient:: 15-24 minutes
[2022-06-05 07:36] LABS: COVID19 -Nasal RAPID Negative (Negative)
[2022-06-05] MEDS: CEFAZOLIN 2 GM/100 ML PREMIX 100 ML IV (08:00)
--- NOTE | 2022-06-05 08:14 | SUR.OPER ---
Supine on padded OR bed, head on pillow, arms secured on padded arm boards at <90 degrees abduction, legs uncrossed, safety belt at thigh, tape over blanket over lower legs.
--- NOTE | 2022-06-05 09:50 | P.OP_ITS ---
Operative Date/Time/Diagnoses Date of procedure: 06/05/22 Time of procedure: 08:15 Pre-op diagnosis: 39 week , prior section x2 Desires sterilization by way of bilateral salpingectomy Post-op diagnosis: same Procedure & Clinicians Procedure: Repeat lower transverse section and bilateral salpingectomy Same procedure as scheduled: Yes Indications: 39 week , prior section x 2, for repeat scheduled section. macrosomia. She desires to be finished with childbearing after this and desires sterilization. Options reviewed of bilateral tubal ligation which potentially could be reversed in the future versus bilateral salpingectomy which would be permanent, nonreversible, but has possible increased prophylactic benefits of decreased lifetime risk of ovarian cancer with salpingectomy. She desired proceeding with bilateral salpingectomy for the sterilization procedure and voiced understanding of permanence of the procedure. Surgeon: Yisel Michelle Tube Sizer And Cutter Operator: Darlene Mayen Anesthesia Type: Spinal Operative Notes Findings: Normal appearing maternal uterus and bilateral tubes and ovaries. On inspection of the fallopian tubes, the veins in the mesosalpinx were very engorged on her left side immediately beneath the left fallopian tube for the proximal 1/2 of the tube. Distal salpingectomy , excising distal 1/2 of left fallopian tube on this side was thus performed rather than total salpingectomy. The right fallopian tube was excised to within approximately 1.5 of the uterine cornua. Baby boy delivered at 0837, with initial spontaneous cry after stimulation. Apgars 8 and 9. A few minutes after delivery, baby did need some CPAP for awhile but subsequently CPAP discontinued and baby doing well . Closure Type: primary Specimen(s): cord blood and tubes/segments of tubes Intraoperative meds administered: Pitocin Applied: Catheter Estimated Blood Loss (mL): 400 Blood products transfused: none Procedure in detail: Description of procedure: The patient was transferred from the center to the operating room. Spinal anesthesia was placed by the anesthesiologist. She was placed in the supine position. FHR auscultated and was normal after the spinal anesthesia. Gray catheter was placed and she was prepped and draped in routine sterile fashion. . Time-out was taken and the patient procedure was identified. Anesthesia level was tested and was adequate. A Pfannenstiel skin incision was made in the lower abdomen through her prior transverse skin incision and carried down to the level of the fascia. The fascia was incised in the midline and was extended transversely with sharp and then blunt extension. The fascia was somewhat scarred from her prior surgeries. The superior and inferior edges of the fascia were elevated and dissected off the rectus muscles with sharp, bovie and blunt dissection. The muscles were scarred in the midline and scar tissue was excised and the muscles were then in the midline. The parietal peritoneum was elevated, incised and extended bluntly. The bladder blade was placed. The visceral peritoneum was elevated off the lower uterus, incised and the bladder flap was bluntly created. The bladder blade retractor was placed. A transverse incision was made in the lower uterus and the incision was extended transversely with blunt dissection. The amniotic membranes were ruptured for clear fluid. The head was not engaged and was elevated to the uterine incision and delivered through the incision with fundal pressure. Anterior and posterior shoulders followed by the body were delivered without difficulty with fundal assistance. The cried spontaneously after being dried and with some minimal stimulation. Thei boy was shown to the parents. After 1 minute the cord was clamped and cut and the infant was handed off to respiratory therapy who was present for delivery. Cord blood was obtained a specimen. Pitocin IV was started after delivery of the . The placenta delivered with uterine massage and cord traction. It appeared intact with a normal three- vessel cord. The uterus was swept clean of adherent clots and membranes. The uterus was brought through the abdominal incision and closed in2 layers with 0 Vicryl, the 1st layer being in running locking continuous fashion and the 2nd layer being in a vertical imbricating type fashion. after the 1st layer was placed, initial inspection had revealed only some bleeding near her left uterine angle which was controlled with a hderxg-yk-rqwvj suture of 0 Vicryl. However subsequently some persistent light bleeding was also noted at 2 places in the midline and a 2nd layer of 0 Vicryl was placed in running imbricating type fashion. Hemostasis was then noted. The tubes and ovaries were inspected and noted to be normal. The patient confirmed her desire to proceed with salpingectomy for sterilization. Attention was then placed to the left fallopian tubes where he Power seal device was used to coagulate and excise the mesosalpinx and vessels in the mesosalpinx immediately inferior to her left fallopian tube starting at the fimbriated end. This was carried approximately group home up the fallopian tube and then the power seal device was used to come across the fallopian tube to excise it and it was handed off as specimen. The veins in the mesosalpinx were very engorged on her left side immediately beneath the left fallopian tube for the proximal 1/2 of the tube, Thus excision across the tube was at approximately the midway point and not carried further up the tube, thus performing. distal partial salpingectomy on this side. Good hemostasis was noted along the mesosalpinx and the excision site across the tube. The tube was visibly sealed off. Attention was then placed to the right fallopian tube where the Power Seal device was used starting approximately 1.5 cm from the cornua, the power seal was used to come across the fallopian tube, then used to come across the mesosalpinx inferior to the fallopian tube, taking this all the way down to the fimbriated end and the tube was excised and freed. The tube was handed off as specimen. Good hemostasis was noted along the mesosalpinx and at the stump of the fallopian tube. Posterior to the uterus was suctioned of some blood and fluid. The uterus was placed back into the maternal abdomen. The paracolic gutters were inspected and wiped of some minimal blood and fluid. The anterior cul-de-sac was inspected and some clot was removed. The uterine incision was re-inspected and good hemostasis was noted over the incision and throughout the abdomen. The abdomen was closed. A small portion of omentum was noted to be adherent to peritoneum on her left side and this adhesion was lysed with the Bovie. Good hemostasis was noted along the omentum at the excised adhesion site and along the peritoneum.. The parietal peritoneum was not reapproximated. The fascia was closed with 2 lengths of running continuous suture of 0 Vicryl. The subcutaneous tissue was irrigated and then reapproximated by re-approximating Josi's fascia with running 3-0 Vicryl. The skin was closed with a subcuticular suture of 4 0 Monocryl. Steri-Strips and sterile Aquacel dressing was placed. She tolerated the procedure well and went to the recovery room in stable condition Complications: none Baby 1: Gender: Male Presentation: vertex Position: Right Occiput Anterior Placental Delivery Description: Expressed Cord Vessel Description: 3 Vessels score (1 min): 8 score (5 min): 9 weight: 10 lb 3 oz Narrative: weight 4610gms Post-operative Condition: stable Disposition: PACU Aftercare: routine postop (Transfer to birthing center for routine care)
[2022-06-05] MEDS: OXYCODONE IR 5 MG TABLET PO (10:04)
--- NOTE | 2022-06-05 10:15 | SUR.PHASEI ---
Report called to Lyudmila.
--- NOTE | 2022-06-05 10:27 | SUR.PHASEI ---
Patient transferred to the center. Report given to Dia. VS stable. IV patent, pit infusing. Abdominal dressing CDI. Fundus checked with RN. Isaac patent.
[2022-06-05] MEDS: KETOROLAC 30 MG/ML VIAL IV ×2 (15:05→20:59)
[2022-06-05] MEDS: LANOLIN OINT 7 GM 1 APPLIC TOP (20:57)
[2022-06-05] MEDS: ACETAMINOPHEN 325 MG TABLET 650 MG PO (20:58)
[2022-06-06] MEDS: KETOROLAC 30 MG/ML VIAL IV (02:30)
[2022-06-06] MEDS: ACETAMINOPHEN 325 MG TABLET 650 MG PO ×3 (02:30→16:15)
[2022-06-06 08:50] LABS: Add Manual Diff / Slide Review NO; Basophils Absolute Auto 0 /uL (0-100); Basophils Percent Auto 0.3 % (0-2); Eosinophils Absolute Auto 300 /uL (0-450); Hematocrit 31.4 % (36-46); Hemoglobin 10.5 g/dL (12.0-16.0); Lymphocytes Absolute Auto 1600 /uL (1100-4500); Lymphocytes Percent Auto 16.3 % (25-40); Mean Corpuscular HGB Conc 33.4 % (30-36); Mean Corpuscular Hemoglobin 25.4 PG (26-34); Mean Corpuscular Volume 75.9 fL (80-100); Monocytes Absolute Auto 600 /uL (0-900); Monocytes Percent Auto 5.7 % (3-14); Neutrophils Absolute Auto 7400 /uL (1500-7000); Neutrophils Percent Auto 74.7 % (50-75); Platelet Count 193 X10^3/uL (150-400); Red Blood Cell Count 4.14 X10^6/uL (4.0-5.2); Red Cell Distribution Width 16.5 % (11.6-14.8); White Blood Cell Count 9.9 X10^3/uL (4.5-11.0)
[2022-06-06] MEDS: IBUPROFEN 600 MG TABLET PO ×2 (09:32→16:14)
[2022-06-06] MEDS: DOCUSATE 100 MG CAPSULE 200 MG PO (09:33)
--- NOTE | 2022-06-06 13:14 | P.DS_ITS ---
Discharge Providers Provider Date of admission: 06/05/22 05:40 Discharge Date: 06/06/22 Primary care physician: Faustina TILLEY Provider Consults: 06/05/22 11:49 Consult to Transport Tank Technician Routine Comment: Discharge provider: Yisel Michelle MD Summary Hospital Course Date Patient Seen: 06/06/22 Time Patient Seen: 13:14 Diagnoses: status post repeat section and female sterilization with bilateral salpingectomy 39 week , history of section x2 Desires female sterilization by way of salpingectomy macrosomia Hospital Course: Marbella Thompson is a G3 now P3 female who was admitted at 39 weeks EGA for a repeat section and bilateral salpingectomy for sterilization. Her had been uncomplicated. She underwent repeat lower transverse section and bilateral salpingec vandana without complications. On her left side she had a partial salpingectomy rather than complete salpingectomy side due to very engorged veins immediately inferior to the left fallopian tube in the proximal portion. See operative note. She delivered a viable male Weighing 10 lb 3 oz,with Apgars of 8 and 9. After few minutes the infant did need some CPAP for a while for transitioning but then had a normal course. She has had a normal postoperative course and desired discharge home on postop day 1. The baby is ready for discharge and she will be discharged home. She reports she is doing well on postoperative day 1. Yesterday evening she had already been sitting in the chair and moving around. She reports she has continued to ambulate in the room without problems. She is only using Tylenol and the Toradol for incisional discomfort. She would like a prescription for a small amount of the oxycodone in case she needs this when she becomes more mobile at home or for sleep. She was uncertain whether she was passing some gas yet and was observed until later afternoon where she reported passing at least 2 episodes of flatus, reported good amounts. Since abdomen mildly distended and tympanic with sounds of gas in the abdomen, stressed importance that we know she is having good flatus, prior to discharge home, to know the bowel has opened up and no ileus. She assured me in the late afternoon that she was passing good flatus. No bowel movement yet. She denies any nausea or emesis. She is eating a regular diet without problems. She is a nd supplementing with formula as she had some concern that she was not producing enough for the baby. She reports that her lochia is light. She is voiding without problems. She desires discharge home. With passing the flatus and apparent GI return, she has had a normal postoperative course and will be discharged home. Peripartum Data Infant Delivery Method: Section Laceration Description: None Episiotomy description: None complications: none [place] 1: Gender: Male Disposition of : home Discharge Diagnosis (1) care following delivery: Start Date: 06/05/22 Start Time: 17:00 Status: Acute Status at Discharge Cognitive/behavioral status at discharge: oriented Functional status at discharge: independent ambulation Overall status at discharge: patient is progressing back to baseline Time Spent with Patient Time attestation: Total time spent providing and/or coordinating discharge services: Time spent: Less than 30 minutes Specific discharge activities: Seeing patient on rounds, exam, reviewing discharge instructions and precautions, sending prescriptions including giving her a prescription for breast pump and web sites to obtain breast pump with . Objective Labs Result Diagrams: 06/06/22 08:25 Labs: Laboratory Results - last 24 hr 06/06/22 08:25 WBC 9.9 RBC 4.14 Hgb 10.5 L Hct 31.4 L MCV 75.9 L MCH 25.4 L MCHC 33.4 RDW 16.5 H Plt Count 193 Neut % (Auto) 74.7 Lymph % (Auto) 16.3 L [place] % (Auto) 5.7 Eos % (Auto) 3.0 Baso % (Auto) 0.3 Neut # (Auto) 7400 H Lymph # (Auto) 1600 [place] # (Auto) 600 Eos # (Auto) 300 Baso # (Auto) 0 Exam Vital Signs (past 8 hours): Oxygen Delivery Method Room Air Temperature 97.2F BP 111/59 Pulse 70 RR 16 Narrative Exam Narrative: General: Well-appearing female Abdomen: Soft, nontender except near the incisional dressing. Abdomen mildly distended, tympanic. Fundus @U, firm, nontender Extremities: Trace pedal edema Discharge Plan Discharge Plan Patient Disposition: Home Provider Discharge Comment: You had a repeat section and bilateral salpingectomy (Removal of both fallopian tubes for sterilization ) on 06/05/22. You may use wome-god-quhlbsg Tylenol as directed on the bottle for pain in addition to the prescription ibuprofen and oxycodone. Discharge orders & Medications Prescriptions: New docusate sodium 100 mg tablet 100 mg PO DAILY Qty: 20 0RF ibuprofen 600 mg Tablet 600 mg PO Q6HR PRN (Reason: pain) Qty: 60 0RF oxycodone 5 mg tablet 5 mg PO Q6H PRN (Reason: pain) Qty: 8 0RF Continued ferrous sulfate 325 mg (65 mg iron) tablet 325 mg PO DAILY Qty: 30 4RF prenat.vits,brenda,zhg-stmt-kajtt Tablet 1 tab PO DAILY calcium carbonate [Tums] 200 mg calcium (500 mg) tablet,chewable 200 mg PO BID PRN (Reason: Acid Reflux) betamethasone dipropionate 0.05 % ointment 1 applic topical DAILY PRN (Reason: rash) Qty: 45 0RF Discontinued ondansetron HCl 4 mg tablet 4 mg PO Q8H PRN (Reason: nausea and vomiting) Qty: 20 1RF cefpodoxime 100 mg tablet 100 mg PO Q12H Qty: 14 0RF Rx Instructions: must administer with a meal/food clotrimazole [Clotrimazole-7] 1 % cream 1 appful vaginal BEDTIME Qty: 45 0RF No Action (DME) lancets Misc See Rx Instructions .ROUTE .MEDSUPPLY Qty: 120 3RF Rx Instructions: Testing blood sugars fasting and 2 hr PP (DME) Double Electric Breast Pump See Rx Instructions .Route .MEDSUPPLY Qty: 1 0RF Rx Instructions: Pump and supplies (DME) blood-glucose meter [Blood Glucose Monitoring] Kit See Rx Instructions .ROUTE .MEDSUPPLY Qty: 1 0RF Rx Instructions: To use with testing fasting and 2 hr PP blood sugars (DME) Blood Glucose Test Strip See Rx Instructions .ROUTE .MEDSUPPLY Qty: 120 3RF Rx Instructions: Testing blood sugars fasting and 2 hr PP Follow up/Referrals: Yisel Michelle MD [Physician] - (Incision check w/ Dr. Michelle on @ 11am) Discharge Health Status Multidrug resistant organism: No MDRO Diet/Activity/Treatments Diet: Regular Skin/Wound/Dressing Care Report to your healthcare provider any signs of infection, such as:: chills, fever, increased pain, unusual drainage and unusual redness Visit Report/Discharge Packet Instructions: DI for Discharge Data Primary Care Provider: ProviderFaustina
[2022-06-06] MEDS: MEASLES,MUMPS,RUBELLA VACC/PF 0.5 ML VIAL SUBCUT (16:15)
== END 2022-06-06 17:00 | disposition home or self-care (01) | DRG 785 ==
PROVIDERS: Admitting Provider Obstetrics & Gynecology; Referring Provider Obstetrics & Gynecology; Visit Provider Obstetrics & Gynecology
PROC: 10D00Z1 Extraction of Products of Conception, Low, Open Approach (ICD-10-PCS; CPT 59514; principal; 2022-06-05 07:45)
DX: O34.211 Maternal care for low transverse scar from previous cesarean delivery (principal); Z3A.39 39 weeks gestation of pregnancy; Z37.0 Single live birth; N83.8 Other noninflammatory disorders of ovary, fallopian tube and broad ligament; Z30.2 Encounter for sterilization; O99.824 Streptococcus B carrier state complicating childbirth; O36.63X0 Maternal care for excessive fetal growth, third trimester, not applicable or unspecified; Z20.822 Contact with and (suspected) exposure to COVID-19
CPT/HCPCS: 36415; 58611; 59050; 59510; 59514; 85025; 86850; 86900; 86901; 87635; C9803; J0690; J1885; J2274; J2405; J2590; J3010